=== PATIENT | female | born 1935 | race African-American/Black ===

== ENCOUNTER 2016-10-04 06:52 | Emergency (ER) | payer MEDICARE, MEDICAID ==
[~2016-10-04] VITALS: Ht 165.1 cm; Wt 71.0 kg
[~2016-10-04 06:52] MED LIST: AMLO5TAB88 PO; BUPR150T9 PO; HYDR-4134 PO; LORA1TAB PO; METO25TA6 PO; OMEP20CA10 PO; TRAM50TA3 PO
[2016-10-04] MEDS ORDERED: ALBUTEROL (0.083%) 2.5MG/3ML NEB HHN STA (07:09)
[2016-10-04] MEDS ORDERED: DIAZEPAM 5 MG TABLET PO ONE (07:15)
[2016-10-04 07:40] LABS: BASOPHILS % 0.6 % (0.0-2.0); EOSINOPHILS % 4.3 % (0.0-5.0); HEMATOCRIT. 29.3 % (36.0-48.0); HEMOGLOBIN. 9.3 g/dL (12.0-16.0); LYMPHOCYTES % 40.1 % (20.0-50.0); MEAN CORPUSCULAR HEMOGLOBIN 26.7 pg (28.0-32.0); MEAN CORPUSCULAR HGB CONC 31.7 g/dL (31.0-37.0); MEAN CORPUSCULAR VOLUME 84.2 fL (81.0-99.0); MEAN PLATELET VOLUME 7.7 fl (7.4-10.4); MONOCYTES % 9.1 % (2.0-8.0); NEUTROPHILS % 45.9 % (40.0-76.0); PLATELET 282 x1000/uL (130-400); RED BLOOD CELL COUNT 3.48 mill/uL (4.2-5.4); RED CELL DISTRIBUTION WIDTH 14.1 % (11.6-14.6); WHITE BLOOD COUNT 5.6 x1000/uL (4.5-11.0)
[2016-10-04 07:46] LABS: CHLORIDE 111 mEq/L (98-107)
[2016-10-04 07:55] LABS: ALANINE AMINOTRANSFERASE 14 IU/L (13-61); ALBUMIN 3.3 g/dL (3.4-5.0); ANION GAP 16; CALCIUM 8.8 mg/dL (8.5-10.1); CARBON DIOXIDE 21 mEq/L (21-32); INDEX HEMOLYSI 1 (1-3); INDEX ICTERIC 1 (1-4); INDEX LIPEMIC 1 (1-3); LIPASE 158 IU/L (73-393); UREA NITROGEN BLOOD 39 mg/dL (7-21); eGFR 16 mL/min (>60)
[2016-10-04 07:58] LABS: NT PRO B-TYPE NATRIURETIC PEP 238 pg/mL (5-125); TROPONIN I < 0.02 ng/mL (0.00-0.04)
[2016-10-04 08:01] LABS: INR 1.1; PROTHROMBIN TIME 10.9 sec
[2016-10-04] MEDS ORDERED: TRAMADOL 50MG TABLET PO ONE (08:30)
[2016-10-04 09:06] LABS: CLARITY URINE CLEAR (CLEAR); COLOR URINE YELLOW (YELLOW); GLUCOSE URINE NEGATIVE (NEGATIVE); KETONES URINE NEGATIVE (NEGATIVE); LEUKOCYTE ESTERASE URINE NEGATIVE (NEGATIVE); NITRITE URINE NEGATIVE (NEGATIVE); OCCULT BLOOD URINE NEGATIVE (NEGATIVE); PROTEIN URINE 2+ (NEGATIVE); SPECIFIC GRAVITY URINE 1.013 (1.005-1.030); UROBILINOGEN URINE 0.2 E.U./dL (0.2-1.0)
[2016-10-04 09:25] LABS: HYALINE CASTS URINE 0-5 /lpf; MUCUS URINE TRACE /lpf (< = 2+)
[2016-10-04 09:26] LABS: BACTERIA URINE 1+; RBC URINE 0-2 /hpf (0-2); SQUAMOUS EPITHELIAL CELL URINE 2+ /lpf (RARE/1+); WBC URINE 0-2 /hpf (0-2)
[2016-10-04 11:03] VITALS: BP 149/66
== END 2016-10-04 11:08 | disposition home or self-care (01) ==
LOC: ER 07:09
DX: M54.12 Radiculopathy, cervical region (principal); G89.29 Other chronic pain; M54.2 Cervicalgia; N39.0 Urinary tract infection, site not specified; F41.9 Anxiety disorder, unspecified; I10 Essential (primary) hypertension; D64.9 Anemia, unspecified; E46 Unspecified protein-calorie malnutrition; Z68.26 Body mass index [BMI] 26.0-26.9, adult; Z88.6 Allergy status to analgesic agent; Z91.018 Allergy to other foods; Z91.010 Allergy to peanuts; Z90.49 Acquired absence of other specified parts of digestive tract; Z98.890 Other specified postprocedural states
CPT/HCPCS: 36415; 71010; 72125; 80053; 81001; 83605; 83690; 83880; 84484; 85025; 85610; 85730; 87040; 87086; 93005; 94640; 99285; J7611